=== PATIENT | female | born 1980 | race Caucasian/White ===

== ENCOUNTER → 2025-01-09 | Outpatient (CLI) | payer OTHER ==
[2025-01-15 10:09] LABS: HPV HIGH RISK BY TMA Not Detected; HPV SOURCE Cervical
== END ==
LOC: LAB 17:00 → LAB SHORT 17:00
PROVIDERS: Internal Medicine
DX: Z00.00 Encounter for general adult medical examination without abnormal findings (principal)
CPT/HCPCS: 87624; G0123

== ENCOUNTER 2025-07-18 10:37 | Day surgery (SDC) | payer OTHER ==
[~2025-07-18] VITALS: Ht 167.6 cm; Wt 114.8 kg
[~2025-07-18 10:37] MED LIST: CLON1 PO; CYCL10 PO; DHA FROM ALGAE200 MG PO; MAGNESIUM PO; THERA-D2000 UNIT PO
[2025-07-18 10:59] VITALS: BP 120/85
--- NOTE | 2025-07-18 13:22 | NUR ---
07/18/25 1322 Meg Mosqueda CONFIRMED AND REVIEWED H&P, MEDCICATIONS, ALLERGIES, MEDICAL HISTORY, RESPIRATORY HISTORY, VITAL SIGNS, 3-LEAD EKG, CONSENTS, AND PHYSICIAN ORDERS. PATIENT CONFIRMS NPO STATUS AND AGREES WITH SCHEDULED PROCEDURE. MONITOR INTACT WITH CONTINUOUS PULSE OXIMETRY, CAPNOGRAPHY, 3-LEAD EKG, INTERMITTENT BP. SUPPLEMENTAL O2 TO BE TITRATED THROUGHOUT PROCEDURE TO MAINTAIN O2 SATURATION ABOVE 90%. PATIENT DETERMINED TO BE ASA APPROPRIATE MAC-DR. CALLEJAS PROVIDING MAC.SEE ANESTHESIA RECORD.
[2025-07-18 13:45] VITALS: BP 115/76
[2025-07-18 14:00] VITALS: BP 110/77
--- NOTE | 2025-07-18 14:03 | NUR ---
Patient up to Ambulate independently. Gait steady. Discharge instructions reviewed with patient. Patient verbalizes understanding. Copy given to patient to take home. Discharged via wheelchair to private car for ride home WITH .
== END 2025-07-18 14:04 | disposition home or self-care (01) ==
LOC: ORSCMMR 10:37 → ORD 12:00 → ORSCMMR 12:00
PROVIDERS: Surgery
PROC: 0DBN8ZX Excision of Sigmoid Colon, Via Natural or Artificial Opening Endoscopic, Diagnostic (ICD-10-PCS; principal; 2025-07-18 12:00)
DX: Z12.11 Encounter for screening for malignant neoplasm of colon (principal); K63.5 Polyp of colon; F41.9 Anxiety disorder, unspecified; E66.9 Obesity, unspecified; Z68.41 Body mass index [BMI] 40.0-44.9, adult; Z79.899 Other long term (current) drug therapy
CPT/HCPCS: 88305; J2704; J7120